=== PATIENT | male | born 1995 | race Caucasian/White ===

== ENCOUNTER 2018-09-01 19:30 | Emergency (ER) | payer OTHER ==
[~2018-09-01] VITALS: Ht 172.7 cm; Wt 86.2 kg
[~2018-09-01 19:30] MED LIST: LORTAB 5-500 T1 EAC1 PO
[2018-09-01 19:53] LABS: URINE BILIRUBIN NEGATIVE (Negative); URINE BLOOD 2+ (Negative); URINE CLARITY CLEAR; URINE COLOR YELLOW; URINE GLUCOSE-RANDOM NEGATIVE (Negative); URINE KETONES NEGATIVE (Negative); URINE LEUKOCYTES-REFLEX NEGATIVE (Negative); URINE NITRITE-REFLEX NEGATIVE (Negative); URINE PROTEIN NEGATIVE (Negative); URINE UROBILINOGEN 0.2 E.U./dl (0.2-1.0)
[2018-09-01 20:00] LABS: AMP/METHAMP Negative (Negative); BARBITURATES Negative (Negative); BENZODIAZEPINES Negative (Negative); COCAINE Negative (Negative); METHADONE Negative (Negative); OPIATES Negative (Negative); PCP Negative (Negative); THC POSITIVE (Negative)
[2018-09-01 20:05] LABS: BACTERIA-REFLEX None Seen /HPF (None Seen); CASTS None Seen /LPF (None Seen); CRYSTALS None Seen /LPF (None Seen); MUCUS None Seen strn/LPF (None Seen); SQUAMOUS NONE SEEN /LPF (0-3); URINE RBC None Seen /HPF (0-2); URINE WBC-REFLEX None Seen /HPF (0-5)
[2018-09-01 20:06] LABS: HEMATOCRIT 50.1 % (42.0-52.0); HEMOGLOBIN 16.9 gm/dL (14.0-18.0); MCH 28.9 pg (26.0-34.0); MCHC 33.7 g/dL (28.0-37.0); MCV 85.8 fL (80.0-100.0); MPV 8.6 fl. (7.2-11.1); NUCLEATED RBCS 0 /100WBC; PLATELET COUNT* 252 thou/uL (150-400); RBC 5.84 mil/uL (4.50-6.00); RDW-CV 13.6 % (10.5-14.5); WBC 8.3 thou/uL (4.0-11.0)
[2018-09-01 20:35] LABS: ABSOLUTE LYMPHOCYTES 1.1 thou/uL (0.8-5.3); ABSOLUTE MONOCYTES 0.2 thou/uL (0.0-1.2); ABSOLUTE NEUTROPHILS 7.1 thou/uL (1.6-8.1); PLATELET ESTIMATE ADEQUATE
[2018-09-01 21:14] LABS: POTASSIUM 4.5 mmol/L (3.5-5.1)
[2018-09-01 21:15] LABS: CALCIUM 9.8 mg/dL (8.5-10.1)
[2018-09-01 21:20] LABS: ALBUMIN 4.8 g/dL (3.4-5.0); TOTAL BILIRUBIN 0.7 mg/dL (<0.1-1.0); TOTAL PROTEIN 8.3 g/dL (6.4-8.2)
[2018-09-01] MEDS ORDERED: ZOFRAN ODT4 MG PO (21:57)
[2018-09-01] MEDS ORDERED: FLAGYL500 M1 PO (21:58)
[2018-09-01 22:19] VITALS: BP 122/74
--- NOTE | 2018-09-04 10:14 | EKG ---
[place] [address] ELECTROCARDIOGRAM REPORT Name: MARLY SEPULVEDA [id number] Admission: 09/01/18 Attend Phys: Discharge: 09/01/18 Date of : [birth year] Report #: [id number] THIS REPORT FOR: //name// [facility] ED Test Date: 2018-09-01 Test Time: 20:01:58 Pat Name: MARLY SEPULVEDA Department: Room: Gender: M Operations Specialist: : 1995 Requested By: Maricel Kwong Order Number: [id number] MD: Abhishek Cat Measurements Intervals [place] Rate: 86 P: 73 NE: 129 QRS: 65 QRSD: 84 T: 46 QT: 326 QTc: 390 Interpretive Statements Sinus rhythm Compared to ECG 12/11/2010 12:25:34 Sinus arrhythmia no longer present Electronically Signed On 09-04-2018 10:14:38 PATIENT MANAGER by Abhishek Cat [email or web address] <ELECTRONICALLY SIGNED> By: Abhishek Cat MD, [facility] 09/04/18 1014 00 00 Abhishek Cat MD, FACC /EPI
== END 2018-09-01 22:19 | disposition home or self-care (01) ==
LOC: M.ERS 19:30
PROVIDERS: Emergency Medicine
DX: R19.7 Diarrhea, unspecified (principal); F17.210 Nicotine dependence, cigarettes, uncomplicated; Z79.899 Other long term (current) drug therapy

== ENCOUNTER 2019-05-30 11:26 | Emergency (ER) | payer OTHER ==
[~2019-05-30] VITALS: Ht 172.7 cm; Wt 83.9 kg
[~2019-05-30 11:26] MED LIST changes: +FLAGYL500 M1 PO; +ZOFRAN ODT4 MG PO
[2019-05-30] MEDS ORDERED: ALLEGRA-D 24 H1 EACH PO (11:44)
[2019-05-30 11:57] VITALS: BP 132/73
== END 2019-05-30 11:58 | disposition home or self-care (01) ==
LOC: M.ERS 11:26
DX: H92.03 Otalgia, bilateral (principal); J06.9 Acute upper respiratory infection, unspecified

== ENCOUNTER 2019-06-13 18:23 | Emergency (ER) | payer OTHER ==
[~2019-06-13] VITALS: Ht 172.7 cm; Wt 84.4 kg
[~2019-06-13 18:23] MED LIST changes: +ALLEGRA-D 24 H1 EACH PO
[2019-06-13] MEDS ORDERED: MEDROLDOSEPACK PO (18:32)
[2019-06-13] MEDS ORDERED: AMOXICILLIN 50500 MG PO (18:32)
[2019-06-13] MEDS ORDERED: FLONASE 0.05%50 MCG NASAL (18:32)
[2019-06-13 18:59] LABS: ABSOLUTE LYMPHOCYTES 2.1 thou/uL (0.8-5.3); ABSOLUTE MONOCYTES 0.4 thou/uL (0.0-1.2); ABSOLUTE NEUTROPHILS 3.7 thou/uL (1.6-8.1); BASOPHILS 0.3 %; EOSINOPHILS 0.6 %; HEMATOCRIT 48.6 % (42.0-52.0); HEMOGLOBIN 16.6 gm/dL (14.0-18.0); LYMPHOCYTES 33.6 %; MCH 29.5 pg (26.0-34.0); MCHC 34.1 g/dL (28.0-37.0); MCV 86.5 fL (80.0-100.0); MONOCYTES 5.9 %; MPV 8.5 fl. (7.2-11.1); NUCLEATED RBCS 0 /100WBC; PLATELET COUNT* 237 thou/uL (150-400); POLYS 59.6 %; RBC 5.62 mil/uL (4.50-6.00); RDW-CV 13.2 % (10.5-14.5); WBC 6.2 thou/uL (4.0-11.0)
[2019-06-13 19:15] LABS: INFLUENZA A ANTIGEN Negative (Negative); INFLUENZA B ANTIGEN Negative (Negative)
[2019-06-13] MEDS ORDERED: NAPROSYN500 M1 PO (19:30)
[2019-06-13 19:59] VITALS: BP 148/68
== END 2019-06-13 19:59 | disposition home or self-care (01) ==
LOC: M.ERS 18:23
PROVIDERS: Nurse Practitioner Psychiatric/Mental Health
DX: H92.03 Otalgia, bilateral (principal); R03.0 Elevated blood-pressure reading, without diagnosis of hypertension

== ENCOUNTER 2019-11-27 20:28 | Emergency (ER) | payer OTHER ==
[~2019-11-27] VITALS: Ht 172.7 cm; Wt 86.2 kg
[~2019-11-27 20:28] MED LIST changes: +AMOXICILLIN 50500 MG PO; +FLONASE 0.05%50 MCG NASAL; +MEDROLDOSEPACK PO; +NAPROSYN500 M1 PO
[2019-11-27] MEDS ORDERED: PROTONIX40 M2 PO (21:13)
[2019-11-27 23:58] LABS: ABSOLUTE LYMPHOCYTES 0.5 thou/uL (0.8-5.3); ABSOLUTE MONOCYTES 0.5 thou/uL (0.0-1.2); ABSOLUTE NEUTROPHILS 5.6 thou/uL (1.6-8.1); BASOPHILS 0.5 %; EOSINOPHILS 0.3 %; HEMATOCRIT 47.3 % (42.0-52.0); HEMOGLOBIN 16.3 gm/dL (14.0-18.0); LYMPHOCYTES 7.8 %; MCH 29.4 pg (26.0-34.0); MCHC 34.5 g/dL (28.0-37.0); MCV 85.1 fL (80.0-100.0); MPV 8.3 fl. (7.2-11.1); NUCLEATED RBCS 0 /100WBC; PLATELET COUNT* 197 thou/uL (150-400); POLYS 84.4 %; RBC 5.55 mil/uL (4.50-6.00); RDW-CV 13.2 % (10.5-14.5); WBC 6.6 thou/uL (4.0-11.0)
[2019-11-28] LABS: URINE BILIRUBIN NEGATIVE (Negative); URINE BLOOD TRACE (Negative); URINE CLARITY CLEAR; URINE COLOR YELLOW; URINE GLUCOSE-RANDOM NEGATIVE (Negative); URINE KETONES NEGATIVE (Negative); URINE LEUKOCYTES-REFLEX NEGATIVE (Negative); URINE NITRITE-REFLEX NEGATIVE (Negative); URINE PROTEIN NEGATIVE (Negative); URINE SPECIFIC GRAVITY 1.015 (1.005-1.030); URINE UROBILINOGEN 0.2 E.U./dl (0.2-1.0)
[2019-11-28 00:05] LABS: CALCIUM 8.9 mg/dL (8.5-10.1); POTASSIUM 3.9 mmol/L (3.5-5.1)
[2019-11-28 00:15] LABS: INFLUENZA A ANTIGEN Negative (Negative); INFLUENZA B ANTIGEN Negative (Negative)
[2019-11-28] MEDS ORDERED: FLEXERIL PO (01:43)
[2019-11-28] MEDS ORDERED: BACLOFEN 10MG T10 MG PO (01:43)
[2019-11-28] MEDS ORDERED: ZOFRAN ODT4 MG PO (01:43)
[2019-11-28 02:03] VITALS: BP 121/75
== END 2019-11-28 02:04 | disposition still patient (30) ==
LOC: M.ERS 20:28
PROVIDERS: Emergency Medicine; Nurse Practitioner Family
DX: M54.5 Low back pain (principal); R11.2 Nausea with vomiting, unspecified